=== PATIENT | female | born 1940 | race Caucasian/White ===

== ENCOUNTER 2018-07-30 13:49 | Inpatient (IN) | payer MEDICARE ==
[2018-07-30] MEDS ORDERED: NS 0.9% 1000 ML** 1,000 ML IV ONE (14:12)
[2018-07-30] MEDS ORDERED: Acetaminophen SUPP* 650 MG SUPP PR ONE (14:13)
--- NOTE | 2018-07-30 14:14 | ED ---
Respiratory - HPI Summary HPI Summary: A 77 y/o female brought in by [facility] ambulance presents to [facility] with a chief complaint of cough for the past week. The patient was at [facility], trying to get a CXR but her arms wouldnt budge from a crossed position. The patient has a Hx of dementia. The patients son reports that she also has had redness on her body for months. Per son, the patient does not have a Hx of DM, HTN or HLD. The patient was noted to have a low grade fever upon arrival at 100. Vital signs while in room HR: 83 bpm, O2 Sat: 95 - History of Current Complaint Chief Complaint: EDGeneral Stated Complaint: COUGH/RASH PER EMS Time Seen by Provider: 07/30/18 13:54 Hx Obtained From: Family/Furniture Stainer, EMS Hx From Patient Unobtainable Due To: Dementia Onset/Duration: Sudden Onset, Lasting Days, Still Present Timing: Constant Initial Severity: Mild Current Severity: Mild Pain Intensity: 0 - out of 10 Character: Cough (Nonproductive) Aggravating Factor(s): Nothing Alleviating Factor(s): Nothing Associated Signs and Symptoms: Fever - 100.0 - Allergy/Home Medications Allergies/Adverse Reactions: Allergies Allergy/AdvReac Type Severity Reaction Status Date / Time No Known Allergies Allergy Verified 07/30/18 13:54 Home Medications: Home Medications Citalopram TAB* [CeleXA TAB*] 10 mg PO DAILY 07/30/18 [History Confirmed ] Nystatin CREAM* 100,000 unit TOPICAL SEE INSTRUCTIONS 07/30/18 [History Confirmed 07/30/18] QUEtiapine TAB* [Seroquel 25 MG TAB*] 25 mg PO BID 07/30/18 [History Confirmed 07/30/18] QUEtiapine TAB* [Seroquel 25 MG TAB*] 50 mg PO BEDTIME 07/30/18 [History Confirmed 07/30/18] lamoTRIgine [Lamotrigine] 25 mg PO IN AM AND AT BEDTIME 07/30/18 [History Confirmed 07/30/18] traZODone TAB* [Desyrel TAB*] 50 mg PO BEDTIME 07/30/18 [History Confirmed 07/30] PMH/Surg Hx/FS Hx/Imm Hx Endocrine/Hematology History: Denies: Hx Diabetes, Hx Systemic Lupus Erythematosus, Hx Thyroid Disease Cardiovascular History: Denies: Hx Congestive Heart Failure, Hx Hypertension Respiratory History: Denies: Hx Asthma, Hx Chronic Obstructive Pulmonary Disease (COPD) GI History: Reports: Hx Gastroesophageal Reflux Disease Denies: Hx Ulcer History: Denies: Hx Dialysis, Hx Renal Disease Musculoskeletal History: Denies: Hx Rheumatoid Arthritis Sensory History: Reports: Hx Contacts or Glasses Opthamlomology History: Reports: Hx Contacts or Glasses Neurological History: Reports: Hx Dementia - Cancer History Hx Chemotherapy: No Infectious Disease History: No Infectious Disease History: Denies: Hx Clostridium Difficile, Hx Hepatitis, Hx Human Immunodeficiency Virus (HIV), Hx of Known/Suspected MRSA, Hx Shingles, Hx Tuberculosis, Traveled Outside the [place] in Last 30 Days - Family History Known Family History: Positive: Other - Positive: brother has alzheimer's Negative: Diabetes - Social History Alcohol Use: None Substance Use Type: Reports: None Smoking Status (MU): Never Smoked Tobacco Review of Systems Positive: Fever - 100.0 Positive: Cough Positive: Rash All Other Systems Reviewed And Are Negative: Yes Physical Exam - Summary Physical Exam Summary: GENERAL: Patient is a well-developed and nourished F who is lying comfortable in the stretcher. Patient is not in any acute respiratory distress. HEAD AND FACE: Normocephalic EYES: PERRLA, EOMI x 2. EARS: Hearing grossly intact. MOUTH: Oropharynx within normal limits. NECK: Supple, trachea is midline, no adenopathy, no JVD, no carotid bruit. CHEST: Symmetric, no tenderness at palpation LUNGS: Clear to auscultation bilaterally. No wheezing or crackles. CVS: Regular rate and rhythm, S1 and S2 present, no murmurs or gallops appreciated. ABDOMEN: Soft, non-tender. Bowel sounds are normal. No abdominal abnormal pulsations. EXTREMITIES: Full ROM in all major joints, no edema, no cyanosis or clubbing. NEURO: Alert and oriented x 3. No acute neurological deficits. Speech is normal and follows commands. SKIN: Chronic rash on head, arms and torso Triage Information Reviewed: Yes Vital Signs On Initial Exam: Initial Vitals Temp Pulse Resp BP Pulse Ox 100 F 82 20 127/79 98 07/30/18 13:50 07/30/18 13:50 07/30/18 13:50 07/30/18 13:50 07/30/18 13:50 Vital Signs Reviewed: Yes Diagnostics - Vital Signs Vital Signs Temp Pulse Resp BP Pulse Ox 07/30/18 13:50 100 F 82 20 127/79 98 - Laboratory Result Diagrams: 07/31/18 06:42 07/31/18 06:42 Lab Statement: Any lab studies that have been ordered have been reviewed, and results considered in the medical decision making process. - Radiology CXR Radiology Interpretation Completed By: Radiologist Summary of Radiographic Findings: No active cardiopulmonary disease is noted. ED physician has reviewed this imaging report. Re-Evaluation - Re-Evaluation First Eval Re-Evaluation Time: 16:53 Change: Unchanged Comment: Discussed options for disposition with family and social media campaign manager. The patient should be admitted. Disposition - Course Course Of Treatment: A 77 y/o female brought in by [facility] ambulance presents to [facility] with a chief complaint of cough for the past week. The physical exam showed chronic rash on head, arms and torso. CXR impression: No active cardiopulmonary disease is noted. Bloodwork and chemistries obtained. Lactic acid of 2.1 at 14:46. Urine Nitrate was positive. Urines are consistent with a UTI. The patient tested negative for influenza A and influenza B. In the ED course the patient was given Tylenol PO and Sodium Chloride IV. Discussed options for disposition with family and social media campaign manager. The patient will be admitted. Case discussed with hospitalist, Dr. Perdomo. I discussed results with patient. The patient agrees with this plan. - Diagnoses Provider Diagnoses: Urinary tract infection, Rash - Physician Notifications Discussed Care Of Patient With: Salome Perdomo Time Discussed With Above Provider: 17:10 Instructed by Provider To: Admit As Inpatient Discharge - Sign-Out/Discharge Documenting (check all that apply): Patient Departure - admit Patient Received Moderate/Deep Sedation with Procedure: No - Discharge Plan Condition: Fair Disposition: ADMITTED TO [facility] - Billing Disposition and Condition Condition: FAIR Disposition: Admitted to [facility] - Attestation Statements Document Initiated by Scribe: Yes Documenting Scribe: Denver Vuong Provider For Whom Scribe is Documenting (Include Credential): Ifeoma Mcdonnell MD Scribe Attestation: Denver Cunningham, scribed for Ifeoma Mcdonnell MD on 07/31/18 at 0731. Scribe Documentation Reviewed: Yes Provider Attestation: The documentation as recorded by the scribe, Denver Vuong accurately reflects the service I personally performed and the decisions made by me, Edil Mcdonnell MD Status of Scribe Document: Viewed
[2018-07-30 14:39] LABS: Influenza A Molecular NEGATIVE (Negative); Influenza B Molecular NEGATIVE (Negative)
[2018-07-30 15:06] LABS: ABS Basophils 0 10^3/ul (0-0.2); ABS Eosinophils 0.2 10^3/ul (0-0.6); ABS Lymphocytes 1.4 10^3/ul (1.0-4.8); ABS Monocytes 1.2 10^3/ul (0-0.8); ABS Neutrophils 7.5 10^3/ul (1.5-7.7); ABS Nucleated RBC 0 10^3/ul; Eosinophil % 2.2 %; Hematocrit 38 % (33-41); Hemoglobin 12.7 g/dL (12.0-16.0); Lymphocyte % 13.9 %; Mean Corpuscular HGB Conc 34 g/dL (31-36); Mean Corpuscular Hemoglobin 32 pg (27-31); Mean Corpuscular Volume 95 fL (80-97); Mean Platelet Volume 6.7 fL (7.4-10.4); Nucleated Red Blood Cells % 0; Platelet Count 532 10^3/uL (150-450); Red Blood Count 3.99 10^6 /uL (3.70-4.87); Red Cell Distribution Width 14 % (10.5-15); White Blood Count 10.3 10^3/uL (3.5-10.8)
[2018-07-30 15:16] LABS: Activated Partial Thrombo Time 29.3 seconds (26.0-36.3); INR 1.02 (0.77-1.02)
[2018-07-30 15:25] LABS: Albumin 3.9 g/dL (3.2-5.2); Albumin/Globulin Ratio 1.1 (1-3); C Reactive Protein 95.87 mg/L (<8.01); Calcium 9.6 mg/dL (8.6-10.3); EGFR Non-African American 77.7 (>60); Globulin 3.6 g/dL (2-4); Potassium 4.1 mmol/L (3.5-5.0); Total Bilirubin 0.3 mg/dL (0.2-1.0); Total Protein 7.5 g/dL (6.4-8.9)
[2018-07-30 15:35] LABS: Urine Appearance Cloudy; Urine Bacteria 1+ (Absent); Urine Bilirubin Negative (Negative); Urine Blood 1+ (Negative); Urine Color Yellow; Urine Glucose Negative (Negative); Urine Ketones Negative (Negative); Urine Nitrite Positive (Negative); Urine Protein Negative (Negative); Urine Red Blood Cell Trace(0-2/hpf) (Absent); Urine Specific Gravity 1.006 (1.010-1.030); Urine Squamous Epithelial Cell Present (Absent); Urine Urobilinogen Negative (Negative); Urine White Blood Cell 1+(6-10/hpf) (Absent)
[2018-07-30] MEDS ORDERED: cefTRIAXone(*) 1 GM in NS 0.9% 50 ML* 50 ML IVPB ONE (17:00)
[2018-07-30] MEDS ORDERED: Magnesium Hydroxide LIQ* 30 ML UDC PO PRN (19:34)
[2018-07-30] MEDS ORDERED: Acetaminophen TAB* 325 MG PO PRN (19:34)
[2018-07-30] MEDS ORDERED: Al Hydrox/Mg Hydrox/Simet LIQ* 30 ML UDC PO PRN (19:34)
[2018-07-30] MEDS ORDERED: NS 0.9% 1000 ML** 1,000 ML IV SCH (19:45)
[2018-07-30] MEDS ORDERED: Ketoconazole 2 % CREAM (NF) 30 GM TUBE TOPICAL SCH (20:00)
[2018-07-30] MEDS ORDERED: Polymyx/Trimethoprim OPTH* 10 ML BTL BOTH EYES SCH (20:30)
[2018-07-30 20:35] LABS: Magnesium 2.1 mg/dL (1.9-2.7)
[2018-07-30 20:48] LABS: TSH (Thyroid Stimulating Horm) 2.79 mcIU/mL (0.34-5.60)
--- NOTE | 2018-07-30 21:03 | HP ---
CC: Dr. Albino Adame * HISTORY AND PHYSICAL: DATE OF ADMISSION: 07/30/18 PRIMARY CARE PROVIDER: Dr. Albino Adame. ATTENDING PHYSICIAN: Dr. Ysabel Blanco * (dictated by OMER Celestin). CHIEF COMPLAINT: Cough and rash. HISTORY OF PRESENT ILLNESS: Carol Shepard is a 77-year-old female with past medical history significant for dementia, who is brought to the emergency department by her son and [id number] for cough x1 week. The son attempted to take her to her primary care provider today, but there were no appointments available. They took her to [facility] where an x-ray was not able to be obtained, so they decided to report to the ED. The patient has not had a recordable fever at home. Cough has been intermittent for the last week in addition to recently started nasal congestion. The cough is worse at night. The patient is unable to participate in history due to her severe dementia, so majority of history is gathered from her son, her [id number], and medical records. The patient's was her primary chair installer in addition to an aide that comes to the house until recently. Her 1 week ago. The family reports that the rash on her arms and chest has been persistent for the last 5 to 6 months, though has worsened in the last month. The patient does frequently itch rash on her arms, according to family. The aide was applying nystatin topically. The patient's hair began falling out around 1 month ago. The family has not noticed any increased signs of distress from the patient. Additionally, the family has noticed increased discharge from the patient's eyes. It has reaccumulated since being wiped away several hours ago. EMERGENCY DEPARTMENT COURSE: Vital signs when the patient arrived to the emergency department were temperature of 100.0, pulse rate of 82, respiratory rate of 20, 98% on room air, and blood pressure 127/79. The lactic acid was elevated to 2.1 and there was a positive urinalysis. Therefore, the hospitalists were asked to evaluate the patient for admission. PAST MEDICAL HISTORY: 1. Dementia, Alzheimer's, diagnosed in 2010. 2. GERD. 3. Dyslipidemia. PAST SURGICAL HISTORY: Unknown to family. MEDICATIONS: 1. Seroquel 50 mg p.o. at bedtime. 2. Seroquel 25 mg p.o. b.i.d. 3. Celexa 10 mg p.o. daily. 4. Nystatin cream 100,000 units topically. 5. Trazodone 50 mg p.o. at bedtime. 6. Lamotrigine 25 mg p.o. q.a.m. and q.h.s. ALLERGIES: No known drug allergies. FAMILY HISTORY: Brother with Alzheimer's and coronary artery disease. SOCIAL HISTORY: The patient is retired. She was living at home with her until he 1 week ago. The patient has 3 children. Her son, Anthony, is her surrogate decision maker. His number is [phone]. The patient does not use tobacco products, alcohol, or illicit drugs. REVIEW OF SYSTEMS: The patient was unable to participate in review of systems, though pertinent positives as described by family members are in the HPI. PHYSICAL EXAMINATION GENERAL: The patient is lying supine in hospital bed, appearing in no acute distress. HEENT: Eyes: Pupils are equal, round, and reactive to light. Palpebral conjunctivae appear erythematous. There is [id number] discharge from bilateral lateral and medial canthi. Sclerae anicteric. ENT: Mucous membranes appear moist. The patient is unable to cooperate with oropharynx exam. NECK: Neck is supple. No JVD. RESPIRATORY: No adventitious lung sounds on auscultation, although there is poor effort on inspiration. Chest is symmetrical with respirations. CARDIO: Regular rate and rhythm without murmurs, rubs, or gallops. ABDOMEN: Abdomen is soft and nontender. NEURO: The patient is alert and oriented x0. The patient is unable to cooperate with neurological exam. SKIN: Skin is dry throughout. Skin is extremely dry at the scalp with white patches of additional flaking skin and patchy hair loss. Demarcated erythema under bilateral breasts extending to down bilateral arms and up throughout chest. Additionally, there is demarcated erythema on the left thigh approx 3 cm in diameter. The patient is noted to be itching rash at her arms. DIAGNOSTIC STUDIES/LAB DATA: White blood cell count 10.3, hemoglobin 12.7, hematocrit 38, platelet count 532. Sodium 137, potassium 4.1, chloride 102, CO2 of 26, BUN 8, creatinine 0.73, glucose 94. Lactic acid 2.1, 0.6. Troponin 0.00. CRP 95.87. Urinalysis obtained from straight cath: +1 blood, positive nitrite, +2 leukocyte esterase, 1+ white blood cells, squamous epithelial cells present, and +1 bacteria. Chest x-ray today, impression: "No active cardiopulmonary disease is noted." ASSESSMENT AND PLAN: The patient is a 77-year-old female with significant past medical history of severe dementia who presents to the ED for cough x1 week. The patient is admitted to observation for: 1. Cough. Differential includes a viral upper respiratory infection versus aspiration. The symptoms of the cough appear consistent with a viral upper respiratory infection, including that the cough is worse at night, which consistent with postnasal drip. Additionally, the patient has discharge from bilateral medial and lateral canthi of the eyes which is also consistent very common with viral upper respiratory infection. Due to the patient's advanced dementia, it is necessary to rule out aspiration. Speech evaluation has been ordered. My suspicion for pneumonia is low, as the patient does not have a fever in the ED and did not measure fevers at home. Her lactic acid was elevated to 2.1 in the ED, but later was measured to be 0.6. Because of this, urinalysis was ordered and an incidental pyuria was found. This will be treated with IV ceftriaxone. Urine culture was sent. In addition, blood cultures were sent as part of the sepsis protocol from the ED. The patient received 1 L of normal saline in the ED. 2. Rash and hair loss. Family reports that this rash has been present for up to 6 months and is worsening and spreading. The hair loss started approximately 1 month ago. The hair loss may be explained by seborrheic dermatitis, though poor nutrition may be a component. It is unclear how frequently if at all the chair installer in the home was applying nystatin to the region. The rash is quite consistent with candidiasis, though the differential of the rash on the thigh includes tinea corporis. We will continue nystatin 3 times a day. Checking prealbumin, TSH, and magnesium. Chronic conditions: 3. Dementia. The patient has advanced dementia, she is nonverbal and appears to be minimally ambulatory. We will continue home medicine of Seroquel, Celexa , trazodone, and lamotrigine. 4. FEN. Thickened liquids and soft diet have been ordered. The speech swallow evaluation will determine further diet changes. Electrolytes are within normal limits. 5. DVT prophylaxis. The patient has been initiated on Lovenox. She has a DVT risk score of 3. 6. Code status. The patient is DNR/DNI. MOLST is updated today. 7. Disposition. Social work and Physical Therapy have been consulted with assistance for disposition planning. Depending on input from Physical Therapy and from the previously mentioned speech evaluation, a palliative consult may be considered in the future. The patient was previously cared for by her who 1 week ago and a chair installer who was coming to the home to assist the . The family reports this chair installer to be unreliable, and she has been unreachable today by reports of the family. TIME SPENT: Time spent on this admission was approximately 50 minutes, approximately half was spent at bedside. My attending physician, Dr. Ysabel Blanco, has reviewed this case and agrees with this plan of care. OMER CELESTIN [id number]/CPS #: [id number]/CPS #: [id number] SANTO
[2018-07-30] MEDS: Enoxaparin(*) 40 MG/0.4 ML SYR SUBCUT SCH (21:27)
[2018-07-30] MEDS: Nystatin TOP POWDER* 15 GM BTL TOPICAL SCH (21:27)
--- NOTE | 2018-07-30 21:36 | HP ---
HISTORY AND PHYSICAL: ADDENDUM: ASSESSMENT AND PLAN: The patient is a 77-year-old female with past medical history of severe dementia who presents to the ED via ambulance from [facility] for cough x1 week. The patient is admitted to observation for: 1. Cough. Differential includes a viral upper respiratory infection versus aspiration. The symptoms of the cough appear consistent with a viral upper respiratory infection, including that the cough is worse at night. It is consistent with postnasal drip. Additionally, the patient has discharge from bilateral medial and lateral canthi of the eyes which is also consistent very common with viral upper respiratory infection. Due to the patient's advanced dementia, it is necessary to rule out aspiration. Speech evaluation has been ordered. My suspicion for pneumonia is low, as the patient does not have a fever in the ED and did not measure fevers at home. Her lactic acid was elevated to 2.1 in the ED, but later was measured to be 0.6. Because of this, urinalysis was ordered and an incidental pyuria was found. This will be treated with IV ceftriaxone. Urine culture was sent. In addition, blood cultures were sent as part of the sepsis protocol from the ED. The patient received 1 L of normal saline in the ED. 2. Rash and hair loss. Family reports that this rash has been present for up to 6 months and is worsening and spreading. The hair loss started approximately 1 month ago. It is unclear how frequently if at all the door furring installer in the home was applying nystatin to the region. We will continue nystatin 3 times a day. Checking a TSH and magnesium. The hair loss may be explained by seborrheic dermatitis, though poor nutrition may be a component. Checking prealbumin. 3. Chronic conditions: Dementia. The patient has advanced dementia, she is nonverbal and appears to be minimally ambulatory. We will continue home medicine of Seroquel, Celexa, trazodone, and lamotrigine. 4. FEN. Thickened liquids and soft diet have been ordered. The speech swallow evaluation will determine further diet changes. Electrolytes are within normal limits. 5. DVT prophylaxis. The patient has been initiated on Lovenox. She has a DVT risk score of 3. 6. Code status. The patient is DNR/DNI. MOLST is updated today. 7. Disposition. Social work and Physical Therapy have been consulted with assistance for disposition planning. Depending on input from Physical Therapy and from the previously mentioned speech evaluation, a palliative consult may be considered in the future. The patient was previously cared for by her who 1 week ago and a door furring installer who is coming to the home to assist the . The family reports this door furring installer to be unreliable, and she has been unreachable by reports of the family. TIME SPENT: Time spent on this admission was approximately 50 minutes, approximately half was spent at bedside. My attending physician, Dr. Ysabel Blanco, has reviewed this case and agrees with this plan of care. OMER FARRELL [id number]/CPS #: [id number] MTDAna
[2018-07-31 06:56] LABS: ABS Basophils 0 10^3/ul (0-0.2); ABS Eosinophils 0.2 10^3/ul (0-0.6); ABS Lymphocytes 1.7 10^3/ul (1.0-4.8); ABS Monocytes 0.9 10^3/ul (0-0.8); ABS Neutrophils 4.8 10^3/ul (1.5-7.7); ABS Nucleated RBC 0 10^3/ul; Eosinophil % 2.1 %; Hematocrit 32 % (33-41); Hemoglobin 10.7 g/dL (12.0-16.0); Lymphocyte % 22.2 %; Mean Corpuscular HGB Conc 34 g/dL (31-36); Mean Corpuscular Hemoglobin 32 pg (27-31); Mean Corpuscular Volume 94 fL (80-97); Mean Platelet Volume 6.6 fL (7.4-10.4); Nucleated Red Blood Cells % 0; Platelet Count 426 10^3/uL (150-450); Red Blood Count 3.37 10^6 /uL (3.70-4.87); Red Cell Distribution Width 13 % (10.5-15); White Blood Count 7.6 10^3/uL (3.5-10.8)
[2018-07-31 07:11] LABS: BUN/Creatinine Ratio 9.7 (8-20); Calcium 8.4 mg/dL (8.6-10.3); EGFR African American 113.5 (>60); EGFR Non-African American 93.8 (>60); Potassium 3.9 mmol/L (3.5-5.0)
[2018-07-31] MEDS: Nystatin TOP POWDER* 15 GM BTL TOPICAL SCH ×3 (07:26→19:33)
[2018-07-31] MEDS ORDERED: guaiFENesin LIQ* 100 MG/5 ML UDC PO PRN (10:03)
--- NOTE | 2018-07-31 10:04 | PN ---
Subjective Date of Service: 07/31/18 Interval History: Ms. Shepard is essentially non-verbal but will answer yes and no at times. She seems to indicate that she feels better. Family note that her extensive rash has almost totally resolved and that she appears much more alert and bright. Objective Active Medications: Acetaminophen (Tylenol Tab*) 650 mg PO Q4H PRN Al Hydrox/Mg Hydrox/Simethicone (Maalox Plus*) 30 ml PO Q6H PRN Enoxaparin Sodium (Lovenox(*)) 40 mg SUBCUT Q24H DELMI Ceftriaxone Sodium 1 gm/ (Sodium Chloride) 50 mls @ 200 mls/hr IVPB Q24H DELMI Magnesium Hydroxide (Milk Of Magnesia Liq*) 30 ml PO Q4H PRN Nystatin (Nystatin Top Powder*) 1 applic TOPICAL TID DELMI Vital Signs: Temp Pulse Resp BP Pulse Ox 99.7 F 76 18 122/62 100 07/31/18 08:04 07/31/18 08:04 07/31/18 08:04 07/31/18 08:04 07/31/18 08:04 Oxygen Devices in Use Now: None Appearance: Female lying in bed in NAD Eyes: No Scleral Icterus Ears/Nose/Mouth/Throat: Mucous Membranes Moist Neck: Trachea Midline Respiratory: Symmetrical Chest Expansion and Respiratory Effort, Clear to Auscultation Cardiovascular: NL Sounds; No Murmurs; No JVD, No Edema Abdominal: NL Sounds; No Tenderness; No Distention Extremities: No Edema Skin: No Rash or Ulcers Neurological: NL Muscle Strength and Tone, - - Alert, mostly nonverbal, unable to further assess orientation Nutrition: Taking PO's Result Diagrams: 07/31/18 06:42 07/31/18 06:42 Assess/Plan/Problems-Billing Assessment: Ms. Shepard is a 77 yo F with a PMH of dementia who was admitted on 07/30/18 after her caregiver and she was unable to care for herself any longer with complaints of cough and possible UTI. - Patient Problems (1) Cough Comment: - Chest xray negative - Continue guaifenesin (2) UTI (urinary tract infection) Comment: - UA with positive leuk esterase and bacteria - Monitor culture results - Continue ceftriaxone (3) Alzheimers disease Comment: - Continue supportive care - Had been on multiple medications for behavioral issues at times but family feel that her dementia has advanced to the point that she is not as active and therefore these may no longer be needed - Plan to hold for now, consider resuming seroquel if becomes agitated (4) DVT prophylaxis (5) DNR (do not resuscitate) Comment: Status and Disposition: OBV. Anticipate need for alf vs alternative assistance at home
[2018-07-31] MEDS: cefTRIAXone(*) 1 GM in NS 0.9% 50 ML* 50 ML IVPB SCH (16:44)
[2018-07-31] MEDS: Enoxaparin(*) 40 MG/0.4 ML SYR SUBCUT SCH (19:33)
--- NOTE | 2018-08-01 08:07 | PN ---
Subjective Date of Service: 08/01/18 Interval History: Ms. Shepard seems to be feeling well and appears to be in no acute distress. She is non-verbal. Objective Active Medications: Acetaminophen (Tylenol Tab*) 650 mg PO Q4H PRN Al Hydrox/Mg Hydrox/Simethicone (Maalox Plus*) 30 ml PO Q6H PRN Enoxaparin Sodium (Lovenox(*)) 40 mg SUBCUT Q24H DELMI Guaifenesin (Robitussin*) 5 ml PO Q4H PRN Ceftriaxone Sodium 1 gm/ (Sodium Chloride) 50 mls @ 200 mls/hr IVPB Q24H DELMI Magnesium Hydroxide (Milk Of Magnesia Liq*) 30 ml PO Q4H PRN Nystatin (Nystatin Top Powder*) 1 applic TOPICAL TID DELMI Vital Signs: Temp Pulse Resp BP Pulse Ox 98.3 F 77 16 118/73 97 08/01/18 03:43 08/01/18 03:43 08/01/18 03:43 08/01/18 03:43 08/01/18 03:43 Oxygen Devices in Use Now: None Appearance: Female lying in bed in NAD Eyes: No Scleral Icterus Ears/Nose/Mouth/Throat: Mucous Membranes Moist Neck: Trachea Midline Respiratory: Symmetrical Chest Expansion and Respiratory Effort, Clear to Auscultation Cardiovascular: NL Sounds; No Murmurs; No JVD, No Edema Abdominal: NL Sounds; No Tenderness; No Distention Extremities: No Edema Skin: No Rash or Ulcers Neurological: - - Alert, nonverbal, generalized weakness, does not follow commands Nutrition: Taking PO's Result Diagrams: 07/31/18 06:42 07/31/18 06:42 Assess/Plan/Problems-Billing Assessment: Ms. Shepard is a 77 yo F with a PMH of dementia who was admitted on 07/30/18 after her caregiver and she was unable to care for herself any longer with complaints of cough and possible UTI. - Patient Problems (1) Cough Comment: - Chest xray negative - Continue guaifenesin (2) UTI (urinary tract infection) Comment: - UA with positive leuk esterase and bacteria - Monitor culture results - Continue ceftriaxone (3) Alzheimers disease Comment: - Continue supportive care - Had been on multiple medications for behavioral issues at times but family feel that her dementia has advanced to the point that she is not as active and therefore these may no longer be needed - Plan to hold for now, consider resuming seroquel if becomes agitated (4) Rash Comment: - Patient had diffuse erythematous rash on admission that resolved within 24 hours, unclear source but family worried about lack of adequate care from aide who had been caring for her in the home (5) DVT prophylaxis Comment: - Lovenox (6) DNR (do not resuscitate) Comment: Status and Disposition: OBV. Anticipate need for long term vs alternative assistance at home
[2018-08-01] MEDS: Nystatin TOP POWDER* 15 GM BTL TOPICAL SCH ×3 (09:04→19:18)
[2018-08-01] MEDS: cefTRIAXone(*) 1 GM in NS 0.9% 50 ML* 50 ML IVPB SCH (17:43)
[2018-08-01] MEDS: Enoxaparin(*) 40 MG/0.4 ML SYR SUBCUT SCH (19:19)
[2018-08-02] MEDS: Nystatin TOP POWDER* 15 GM BTL TOPICAL SCH ×3 (10:30→20:07)
--- NOTE | 2018-08-02 13:46 | PN ---
Progress Note - Progress Note Date of Service: 08/02/18 Note: Meeting with son at 5pm.
--- NOTE | 2018-08-02 14:15 | PN ---
Objective Active Medications: Acetaminophen (Tylenol Tab*) 650 mg PO Q4H PRN PRN Reason: FEVER/PAIN Al Hydrox/Mg Hydrox/Simethicone (Maalox Plus*) 30 ml PO Q6H PRN PRN Reason: INDIGESTION Enoxaparin Sodium (Lovenox(*)) 40 mg SUBCUT Q24H [facility] Last Admin: 08/01/18 19:19 Dose: 40 mg Guaifenesin (Robitussin*) 5 ml PO Q4H PRN PRN Reason: COUGH Ceftriaxone Sodium 1 gm/ (Sodium Chloride) 50 mls @ 200 mls/hr IVPB Q24H [facility] Last Admin: 08/01/18 17:43 Dose: 200 mls/hr Magnesium Hydroxide (Milk Of Magnesia Liq*) 30 ml PO Q4H PRN PRN Reason: CONSTIPATION Last Admin: 08/01/18 09:04 Dose: 30 ml Nystatin (Nystatin Top Powder*) 1 applic TOPICAL TID [facility] Last Admin: 08/02/18 10:30 Dose: 1 applic Vital Signs - 8 hr 08/02/18 08/02/18 08/02/18 06:58 08:00 11:24 Temperature 99.3 F 98.8 F Pulse Rate 74 71 Respiratory 16 16 16 Rate Blood Pressure 112/49 145/78 (mmHg) O2 Sat by Pulse 95 97 Oximetry Oxygen Devices in Use Now: Nasal Cannula Result Diagrams: 07/31/18 06:42 07/31/18 06:42 Microbiology and Other Data: Microbiology 07/30/18 15:17 Urine Culture - Final Urine Staphylococcus Epidermidis 07/30/18 15:28 Aerobic Blood Culture - Preliminary Blood Venous No Growth Day 2 Anaerobic Blood Culture - Preliminary No Growth Day 2 07/30/18 14:46 Aerobic Blood Culture - Preliminary Blood Venous No Growth Day 2 Anaerobic Blood Culture - Preliminary No Growth Day 2 07/30/18 14:15 Influenza Types A,B Antigen - Final Nasal Specimen received for Influenza A/B Molecular testing Assess/Plan/Problems-Billing Assessment: Ms. Shepard is a 77 yo F with a PMH of dementia who was admitted on 07/30/18 after her caregiver and she was unable to care for herself any longer with complaints of cough and possible UTI. - Patient Problems (1) Cough Code(s): R05 - COUGH SNOMED Code(s): 97508760 Comment: - May be having low level aspirations based on swallow eval today - Chest xray negative - Continue guaifenesin - Modified diet (2) Rash Code(s): R21 - RASH AND OTHER NONSPECIFIC SKIN ERUPTION SNOMED Code(s): 469244703 Comment: - Patient had diffuse erythematous rash on admission that resolved within 24 hours, unclear source but family worried about lack of adequate care from aide who had been caring for her in the home (3) UTI (urinary tract infection) Comment: - Staph epi with multiple resistence - DC ceftriaxone, will give linezolid based on susceptibilities (4) Alzheimers disease Code(s): G30.9 - ALZHEIMER'S DISEASE, UNSPECIFIED SNOMED Code(s): 15470690 Comment: - Non-verbal, advanced - Pending MICHAEL - Holding seroquel, no aggressive behavior noted - Swallow eval recs pureed with honey thickened liquids (5) DVT prophylaxis Code(s): FWO6414 - SNOMED Code(s): 200697846 Comment: - Lovenox (6) DNR (do not resuscitate) Comment: Status and Disposition: OBV, pending referrals for MICHAEL
[2018-08-02] MEDS ORDERED: Linezolid TAB* 600 MG PO SCH (15:00)
[2018-08-02] MEDS: Linezolid TAB* 600 MG PO SCH (16:51)
--- NOTE | 2018-08-02 18:46 | CONSULT ---
Palliative / Hospice Consult Ordering Provider: Maryanne Decker - PCP-Deep - Subjective Code Status: DNR Advance Directives Location: No Advance Directives MOLST Part A Completed: Yes - on chart MOLST Part E Completed:: Yes - on chart - History or Present Illness History or Present Illness: 77 yo female with severe dementia brought to ER with complaint of cough X 1 week and rash. Her , who was on hospice, had just 1 week ago from lung cancer. Pt has had dementia since 2010. PMH significant for GERD and hypothyroidism. All history is from the [facility] and medical records since pt is non verbal. CXR neg, H/H10.7/32, alb 3.9, prealb 8 and tprot 7.5. was very resistant to getting help in the home. He hired one person but she was providing questionable care. Now grandson and daughter in law will be living there and providing most of the care. They have a question about bathing and lifting pt. Pt doesn't speak, she is non ambulatory and can do no adl's. Family doesn't want a feeding tube or any heroic measures. Lab Values: Laboratory Last Values WBC 7.6 10^3/uL (3.5-10.8) 07/31/18 06:42 RBC 3.37 10^6 /uL (3.70-4.87) L 07/31/18 06:42 Hgb 10.7 g/dL (12.0-16.0) L 07/31/18 06:42 Hct 32 % (33-41) L 07/31/18 06:42 MCV 94 fL (80-97) 07/31/18 06:42 MCH 32 pg (27-31) H 07/31/18 06:42 MCHC 34 g/dL (31-36) 07/31/18 06:42 RDW 13 % (10.5-15) 07/31/18 06:42 Plt Count 426 10^3/uL (150-450) 07/31/18 06:42 MPV 6.6 fL (7.4-10.4) L 07/31/18 06:42 Neut % (Auto) 63.6 % 07/31/18 06:42 Lymph % (Auto) 22.2 % 07/31/18 06:42 Ector % (Auto) 11.8 % 07/31/18 06:42 Eos % (Auto) 2.1 % 07/31/18 06:42 Baso % (Auto) 0.3 % 07/31/18 06:42 Absolute Neuts (auto) 4.8 10^3/ul (1.5-7.7) 07/31/18 06:42 Absolute Lymphs (auto) 1.7 10^3/ul (1.0-4.8) 07/31/18 06:42 Absolute Monos (auto) 0.9 10^3/ul (0-0.8) H 07/31/18 06:42 Absolute Eos (auto) 0.2 10^3/ul (0-0.6) 07/31/18 06:42 Absolute Basos (auto) 0 10^3/ul (0-0.2) 07/31/18 06:42 Absolute Nucleated RBC 0 10^3/ul 07/31/18 06:42 Nucleated RBC % 0 07/31/18 06:42 INR (Anticoag Therapy) 1.02 (0.77-1.02) 07/30/18 14:46 APTT 29.3 seconds (26.0-36.3) 07/30/18 14:46 Sodium 138 mmol/L (135-145) 07/31/18 06:42 Potassium 3.9 mmol/L (3.5-5.0) 07/31/18 06:42 Chloride 108 mmol/L (101-111) 07/31/18 06:42 Carbon Dioxide 24 mmol/L (22-32) 07/31/18 06:42 Anion Gap 6 mmol/L (2-11) 07/31/18 06:42 BUN 6 mg/dL (6-24) 07/31/18 06:42 Creatinine 0.62 mg/dL (0.51-0.95) 07/31/18 06:42 Est GFR ( Amer) 113.5 (>60) 07/31/18 06:42 Est GFR (Non-Af Amer) 93.8 (>60) 07/31/18 06:42 BUN/Creatinine Ratio 9.7 (8-20) 07/31/18 06:42 Glucose 84 mg/dL (70-100) 07/31/18 06:42 Lactic Acid 0.6 mmol/L (0.5-2.0) 07/30/18 18:15 Calcium 8.4 mg/dL (8.6-10.3) L 07/31/18 06:42 Magnesium 2.1 mg/dL (1.9-2.7) 07/30/18 14:46 Total Bilirubin 0.30 mg/dL (0.2-1.0) 07/30/18 14:46 AST 21 U/L (13-39) 07/30/18 14:46 ALT 21 U/L (7-52) 07/30/18 14:46 Alkaline Phosphatase 110 U/L (34-104) H 07/30/18 14:46 Troponin I 0.00 ng/mL (<0.04) 07/30/18 14:46 C-Reactive Protein 95.87 mg/L (<8.01) H 07/30/18 14:46 B-Natriuretic Peptide 78 pg/mL (<=100) 07/30/18 14:46 Total Protein 7.5 g/dL (6.4-8.9) 07/30/18 14:46 Albumin 3.9 g/dL (3.2-5.2) 07/30/18 14:46 Globulin 3.6 g/dL (2-4) 07/30/18 14:46 Albumin/Globulin Ratio 1.1 (1-3) 07/30/18 14:46 Prealbumin 8 mg/dL (18-38) L 07/30/18 14:46 TSH 2.79 mcIU/mL (0.34-5.60) 07/30/18 14:46 Urine Color Yellow 07/30/18 15:17 Urine Appearance Cloudy 07/30/18 15:17 Urine pH 6.0 (5-9) 07/30/18 15:17 Ur Specific [place] 1.006 (1.010-1.030) L 07/30/18 15:17 Urine Protein Negative (Negative) 07/30/18 15:17 Urine Ketones Negative (Negative) 07/30/18 15:17 Urine Blood 1+ (Negative) A 07/30/18 15:17 Urine Nitrate Positive (Negative) A 07/30/18 15:17 Urine Bilirubin Negative (Negative) 07/30/18 15:17 Urine Urobilinogen Negative (Negative) 07/30/18 15:17 Ur Leukocyte Esterase 2+ (Negative) A 07/30/18 15:17 Urine WBC (Auto) 1+(6-10/hpf) (Absent) A 07/30/18 15:17 Urine RBC (Auto) Trace(0-2/hpf) (Absent) 07/30/18 15:17 Ur Squamous Epith Cells Present (Absent) A 07/30/18 15:17 Urine Bacteria 1+ (Absent) A 07/30/18 15:17 Urine Glucose Negative (Negative) 07/30/18 15:17 Influenza A (Rapid) Negative (Negative) 07/30/18 14:28 Influenza B (Rapid) Negative (Negative) 07/30/18 14:28 - Objective Active Medications: Acetaminophen (Tylenol Tab*) 650 mg PO Q4H PRN PRN Reason: FEVER/PAIN Al Hydrox/Mg Hydrox/Simethicone (Maalox Plus*) 30 ml PO Q6H PRN PRN Reason: INDIGESTION Enoxaparin Sodium (Lovenox(*)) 40 mg SUBCUT Q24H [facility] Last Admin: 08/01/18 19:19 Dose: 40 mg Guaifenesin (Robitussin*) 5 ml PO Q4H PRN PRN Reason: COUGH Linezolid (Zyvox Tab*) 600 mg PO Q12H [facility] Stop: 08/05/18 06:01 Last Admin: 08/02/18 16:51 Dose: 600 mg Magnesium Hydroxide (Milk Of Magnesia Liq*) 30 ml PO Q4H PRN PRN Reason: CONSTIPATION Last Admin: 08/01/18 09:04 Dose: 30 ml Nystatin (Nystatin Top Powder*) 1 applic TOPICAL TID [facility] Last Admin: 08/02/18 15:28 Dose: 1 applic Vital Signs: Vital Signs: Temp Pulse Resp BP Pulse Ox 98.1 F 76 14 132/94 96 08/02/18 15:45 08/02/18 15:45 08/02/18 15:45 08/02/18 15:45 08/02/18 15:45 Patient Weight: Weight 62.414 kg Intake and Output: Intake & Output 07/31/18 08/01/18 08/02/18 08/03/18 06:59 06:59 06:59 06:59 Intake Total 2095 340 271 140 Balance 2095 340 271 140 Weight 62.414 kg Intake: IV Fluids 2094 IVPB 56 Oral 0 340 190 140 Other: Estimated Void Small Large Large # Bowel Movements 0 0 # Voids 3 0 1 ADLs: Meal Record Start: 07/30/18 20: 16 Freq: DAILY@0900,1400,1800 Status: Active Protocol: Created 07/30/18 20:16 System (Rec: 07/30/18 20:16 System MED-M21) Document 07/31/18 09:00 [id number] (Rec: 07/31/18 15:35 [id number] MED-C09) Document 07/31/18 14:00 [id number] (Rec: 07/31/18 15:37 [id number] MED-C09) Document 07/31/18 18:00 [id number] (Rec: 07/31/18 18:34 [id number] MED-C11) Document 08/01/18 09:00 [id number] (Rec: 08/01/18 10:13 [id number] MED-C11) Document 08/01/18 14:00 [id number] (Rec: 08/01/18 14:51 [id number] MED-C11) Document 08/01/18 18:00 [id number] (Rec: 08/01/18 18:22 [id number] MED-C11) Document 08/02/18 09:00 [id number] (Rec: 08/02/18 10:11 [id number] MED-C09) Document 08/02/18 14:00 [id number] (Rec: 08/02/18 16:00 [id number] MED-C09) Intake and Output Start: 07/30/18 14: 04 Freq: Status: Active Protocol: Created 07/30/18 14:04 System (Rec: 07/30/18 14:04 System ED-C31) Intake and Output Start: 07/30/18 20: 16 Freq: DAILY@0600,1400,2200 Status: Active Protocol: Created 07/30/18 20:16 System (Rec: 07/30/18 20:16 System MED-M21) Document 07/30/18 22:00 [id number] (Rec: 07/30/18 23:53 [id number] MED-C04) Document 07/31/18 06:00 [id number] (Rec: 07/31/18 06:05 [id number] MED-C15) Document 07/31/18 14:00 [id number] (Rec: 07/31/18 15:38 [id number] MED-C09) Document 07/31/18 22:00 [id number] (Rec: 07/31/18 22:10 [id number] MED-C09) Document 08/01/18 05:20 [id number] (Rec: 08/01/18 05:21 [id number] MED-C09) Document 08/01/18 14:00 [id number] (Rec: 08/01/18 14:51 [id number] MED-C11) Document 08/01/18 21:02 [id number] (Rec: 08/01/18 21:03 [id number] MED-C09) Document 08/02/18 05:31 [id number] (Rec: 08/02/18 05:32 [id number] MED-C09) Document 08/02/18 14:00 [id number] (Rec: 08/02/18 16:00 [id number] MED-C09) Eyes: No Scleral Icterus Ears/Nose/Mouth/Throat: Mucous Membranes Moist Neck: Trachea Midline Cardiovascular: NL Sounds; No Murmurs; No JVD, No Edema Abdominal: NL Sounds; No Tenderness; No Distention Extremities: No Edema Neurological: - - Alert, nonverbal, generalized weakness, does not follow commands - Assessment Assessment: 77 yo female with sever dementia eligible for hospice - Plan Consult Plan (MU): Hospice Plan: Long discussion with family(son and daughter in law). They are familiar with hospice and would very much like it for their mother. They plan on caring for her at home. Discussed the benefits of hospice and how it works. Will try to arrange for same day sign on and son is wanting to transport via car to home. They have a hospital bed but may need a commode. Pt is FAST scale 7c. She is eligible for hospice due to her severe dementia. KPS 40%, PPS 20%. - Time On Unit Date of Evaluation: 08/02/18 Hospice Consult Time in: 06:00 Hospice Consult Time Out: 07:30 Hospice Consult Time Total: 90 > 50% of Time Spend In Counseling or Coordinating Care: Yes
[2018-08-02] MEDS: Enoxaparin(*) 40 MG/0.4 ML SYR SUBCUT SCH (20:06)
[2018-08-03] MEDS: Linezolid TAB* 600 MG PO SCH (05:40)
[2018-08-03] MEDS: Nystatin TOP POWDER* 15 GM BTL TOPICAL SCH ×3 (10:09→21:03)
--- NOTE | 2018-08-03 14:07 | PN ---
Subjective Date of Service: 08/03/18 Interval History: Patient seen and examined. No acute overnight events. Patient remains non-verbal , unable to obtain ROS. Otherwise appears comfortable. Objective Active Medications: Acetaminophen (Tylenol Tab*) 650 mg PO Q4H PRN PRN Reason: FEVER/PAIN Al Hydrox/Mg Hydrox/Simethicone (Maalox Plus*) 30 ml PO Q6H PRN PRN Reason: INDIGESTION Enoxaparin Sodium (Lovenox(*)) 40 mg SUBCUT Q24H [facility] Last Admin: 08/02/18 20:06 Dose: 40 mg Guaifenesin (Robitussin*) 5 ml PO Q4H PRN PRN Reason: COUGH Linezolid (Zyvox Tab*) 600 mg PO Q12H [facility] Stop: 08/05/18 06:01 Last Admin: 08/03/18 05:40 Dose: 600 mg Magnesium Hydroxide (Milk Of Magnesia Liq*) 30 ml PO Q4H PRN PRN Reason: CONSTIPATION Last Admin: 08/01/18 09:04 Dose: 30 ml Nystatin (Nystatin Top Powder*) 1 applic TOPICAL TID [facility] Last Admin: 08/03/18 10:09 Dose: 1 applic Tobramycin/Dexamethasone (Tobradex 0.3-0.1%*) 1 drop BOTH EYES Q4H [facility] Stop: 08/06/18 13:59 Vital Signs - 8 hr 08/03/18 08/03/18 08/03/18 08:00 09:27 11:38 Temperature 98.0 F 98.3 F Pulse Rate 59 69 Respiratory 16 16 18 Rate Blood Pressure 115/57 113/58 (mmHg) O2 Sat by Pulse 97 97 98 Oximetry Oxygen Devices in Use Now: None Appearance: alert, NAD Eyes: No Scleral Icterus, PERRLA, - - lower lid and conjunctiva with erythema and sticky exudate bilaterally Ears/Nose/Mouth/Throat: Mucous Membranes Moist Neck: NL Appearance and Movements; NL JVP, Trachea Midline Respiratory: Symmetrical Chest Expansion and Respiratory Effort, Clear to Auscultation Cardiovascular: NL Sounds; No Murmurs; No JVD, RRR, No Edema Extremities: No Edema, No Clubbing, Cyanosis Skin: - - skin dry and flaky Neurological: - - advanced dementia Nutrition: Taking PO's, - - modified diet Result Diagrams: 07/31/18 06:42 07/31/18 06:42 Microbiology and Other Data: Microbiology 07/30/18 15:17 Urine Culture - Final Urine Staphylococcus Epidermidis 07/30/18 15:28 Aerobic Blood Culture - Preliminary Blood Venous No Growth Day 2 Anaerobic Blood Culture - Preliminary No Growth Day 2 07/30/18 14:46 Aerobic Blood Culture - Preliminary Blood Venous No Growth Day 2 Anaerobic Blood Culture - Preliminary No Growth Day 2 07/30/18 14:15 Influenza Types A,B Antigen - Final Nasal Specimen received for Influenza A/B Molecular testing Assess/Plan/Problems-Billing Assessment: Ms. Shepard is a 77 yo F with a PMH of dementia who was admitted on 07/30/18 after her caregiver and she was unable to care for herself any longer with complaints of cough and possible UTI. - Patient Problems (1) Cough Code(s): R05 - COUGH SNOMED Code(s): 21353714 Comment: - May be having low level aspirations based on swallow eval today - Chest xray negative - Continue guaifenesin - Modified diet - Appears stable (2) Rash Code(s): R21 - RASH AND OTHER NONSPECIFIC SKIN ERUPTION SNOMED Code(s): 612370528 Comment: - Patient had diffuse erythematous rash on admission that resolved within 24 hours, unclear source but family worried about lack of adequate care from aide who had been caring for her in the home - Skin appears dry and itchy, will order body lotion, may be r/t resolved rash , but no erythema noted (3) UTI (urinary tract infection) Comment: - Staph epi with multiple resistence - continue linezolid based on susceptibilities (4) Alzheimers disease Code(s): G30.9 - ALZHEIMER'S DISEASE, UNSPECIFIED SNOMED Code(s): 96599146 Comment: - Non-verbal, advanced - Palliative care consult noted, patient will be transitioned to home hospice with family - Holding seroquel, no aggressive behavior noted - Swallow eval recs pureed with honey thickened liquids (5) DVT prophylaxis Code(s): DSI7008 - SNOMED Code(s): 251870984 Comment: - Lovenox (6) DNR (do not resuscitate) Comment: (7) Eye drainage Code(s): H57.89 - OTHER SPECIFIED DISORDERS OF EYE AND ADNEXA SNOMED Code(s): 14995401 Comment: - Will trial tobradex drops and request RN to clean with saline Status and Disposition: Inpatient pending home hospice with same day sign on.
[2018-08-03] MEDS: Tobramycin/Dexameth OPTH.SUSP* 2.5 M L BTL BOTH EYES SCH ×3 (15:23→21:03)
[2018-08-03] MEDS: Nitrofurantoin Macrocrystals* 50 MG CAP PO SCH (21:03)
[2018-08-03] MEDS: Enoxaparin(*) 40 MG/0.4 ML SYR SUBCUT SCH (21:03)
[2018-08-04] MEDS: Tobramycin/Dexameth OPTH.SUSP* 2.5 M L BTL BOTH EYES SCH ×6 (02:16→21:21)
[2018-08-04] MEDS: Nitrofurantoin Macrocrystals* 50 MG CAP PO SCH ×2 (09:46→21:17)
[2018-08-04] MEDS: Nystatin TOP POWDER* 15 GM BTL TOPICAL SCH ×3 (11:44→21:21)
--- NOTE | 2018-08-04 17:59 | PN ---
Subjective Date of Service: 08/04/18 Interval History: Patient seen and examined. No acute changes overnight. Remains non-verbal but appears comfortable. Objective Active Medications: Acetaminophen (Tylenol Tab*) 650 mg PO Q4H PRN PRN Reason: FEVER/PAIN Al Hydrox/Mg Hydrox/Simethicone (Maalox Plus*) 30 ml PO Q6H PRN PRN Reason: INDIGESTION Enoxaparin Sodium (Lovenox(*)) 40 mg SUBCUT Q24H [facility] Last Admin: 08/03/18 21:03 Dose: 40 mg Guaifenesin (Robitussin*) 5 ml PO Q4H PRN PRN Reason: COUGH Magnesium Hydroxide (Milk Of Magnesia Liq*) 30 ml PO Q4H PRN PRN Reason: CONSTIPATION Last Admin: 08/01/18 09:04 Dose: 30 ml Nitrofurantoin Macrocrystals (Macrodantin*) 50 mg PO BID [facility] Stop: 08/06/18 20:59 Last Admin: 08/04/18 09:46 Dose: 50 mg Nystatin (Nystatin Top Powder*) 1 applic TOPICAL TID [facility] Last Admin: 08/04/18 14:00 Dose: Not Given Tobramycin/Dexamethasone (Tobradex 0.3-0.1%*) 1 drop BOTH EYES Q4H [facility] Stop: 08/06/18 13:59 Last Admin: 08/04/18 17:35 Dose: 1 drop Vital Signs - 8 hr 08/04/18 13:43 Temperature 97.0 F Pulse Rate 57 Respiratory 18 Rate Blood Pressure 121/61 (mmHg) Oxygen Devices in Use Now: None Appearance: alert, NAD Eyes: No Scleral Icterus, PERRLA, - - erythema and exudate to eyes improved Ears/Nose/Mouth/Throat: NL Teeth, Lips, Gums, Mucous Membranes Moist Neck: NL Appearance and Movements; NL JVP, Trachea Midline Respiratory: Symmetrical Chest Expansion and Respiratory Effort, Clear to Auscultation Cardiovascular: NL Sounds; No Murmurs; No JVD, RRR, No Edema Abdominal: NL Sounds; No Tenderness; No Distention Extremities: No Edema, No Clubbing, Cyanosis Skin: - - dry skin, no erythema or rash Neurological: - - advanced dementia, non-verbal Nutrition: Taking PO's Result Diagrams: 07/31/18 06:42 07/31/18 06:42 Microbiology and Other Data: Microbiology 07/30/18 15:17 Urine Culture - Final Urine Staphylococcus Epidermidis 07/30/18 15:28 Aerobic Blood Culture - Preliminary Blood Venous No Growth Day 2 Anaerobic Blood Culture - Preliminary No Growth Day 2 07/30/18 14:46 Aerobic Blood Culture - Preliminary Blood Venous No Growth Day 2 Anaerobic Blood Culture - Preliminary No Growth Day 2 07/30/18 14:15 Influenza Types A,B Antigen - Final Nasal Specimen received for Influenza A/B Molecular testing Assess/Plan/Problems-Billing Assessment: Ms. Shepard is a 77 yo F with a PMH of dementia who was admitted on 07/30/18 after her caregiver and she was unable to care for herself any longer with complaints of cough and possible UTI. - Patient Problems (1) Cough Code(s): R05 - COUGH SNOMED Code(s): 81083846 Comment: - Resolved - Chest xray negative - Continue guaifenesin - Modified diet/pureed - Appears stable (2) Rash Code(s): R21 - RASH AND OTHER NONSPECIFIC SKIN ERUPTION SNOMED Code(s): 409463249 Comment: - Patient had diffuse erythematous rash on admission that resolved within 24 hours, unclear source but family worried about lack of adequate care from aide who had been caring for her in the home - Skin appears dry and itchy, will order body lotion, may be r/t resolved rash , but no erythema noted - Resolved/improved (3) UTI (urinary tract infection) Comment: - Staph epi with multiple resistence - Unable to swallow linezolid (large pills), changed to nitrofurantoin (4) Alzheimers disease Code(s): G30.9 - ALZHEIMER'S DISEASE, UNSPECIFIED SNOMED Code(s): 22235246 Comment: - Non-verbal, advanced - Will be transitioned to home hospice with family tomorrow - Holding seroquel, no aggressive behavior noted - Swallow eval recs pureed with honey thickened liquids (5) Eye drainage Code(s): H57.89 - OTHER SPECIFIED DISORDERS OF EYE AND ADNEXA SNOMED Code(s): 83484721 Comment: - Seems improved today with tobradex drops - Continue rinsing with saline PRN (6) DVT prophylaxis Code(s): LRU2117 - SNOMED Code(s): 196347729 Comment: - Casimiro (7) DNR (do not resuscitate) Comment: Status and Disposition: Inpatient, DC to home hospice with family tomorrow.
[2018-08-04] MEDS: Enoxaparin(*) 40 MG/0.4 ML SYR SUBCUT SCH (21:19)
[2018-08-05] MEDS: Tobramycin/Dexameth OPTH.SUSP* 2.5 M L BTL BOTH EYES SCH ×3 (02:15→08:34)
[2018-08-05 07:48] VITALS: BP 126/57
[2018-08-05] MEDS: Nitrofurantoin Macrocrystals* 50 MG CAP PO SCH (08:34)
[2018-08-05] MEDS: Nystatin TOP POWDER* 15 GM BTL TOPICAL SCH (08:42)
--- NOTE | 2018-08-05 12:04 | DS ---
AMENDED REPORT NOW INCLUDES DESIGNATED COSIGNER CC: Dr. Albino Adame * DISCHARGE SUMMARY: DATE OF ADMISSION: 07/30/18 DATE OF DISCHARGE: 08/05/18 PRIMARY CARE PROVIDER: Dr. Albino Adame. MY ATTENDING FOR TODAY: Dr. Arden Pop.* (DICTATED BY STEFANO GARCIA NP) HOSPITAL COURSE: This is a 77-year-old female patient with advanced dementia who was brought to the emergency department by her son and [id number] with report of cough and rash. The patient's family said they attempted to take her to her primary care provider, but there were no appointments available and they felt that she was too ill not to see somebody, they took her to urgent care and was subsequently referred to the emergency department. The patient does have advanced dementia and she is nonverbal. Family stated that she had this nasal congestion and cough up until 1 week ago. Her who was her primary research recruiter unfortunately 1 week prior to her arrival at the hospital. She had an aide that was coming to the house, however, there was some question of whether the aide was actually taking proper care of the patient. She seem to be declining more rapidly. The patient was admitted for her rash and she did not exhibit any signs of pneumonia, was questionable whether she was having aspiration, however, because of her advanced dementia. Also, there was kind of diffuse rash that was causing hair loss, questionable whether this was a seborrheic dermatitis or candidiasis but in any case, it appeared that the aide who was supposed to be caring for the patient was not providing proper care. During her hospitalization, it was also noted that she had some pyuria. She had a positive urine culture with Staph epidermidis with some multiple drug resistance. We continued the nystatin topically to her skin and also some topical lotion. Her skin quality is very dry and she appear to be itchy. Also during this time, she was noted to have some eye drainage for which she was started on TobraDex eye drops and saline rinses to which she responded very well. Because of the patient's advanced state, the family was interested in hospice and palliative evaluation. She apparently has had more rapid declined over the past few months and the family was interested in having palliative care consult. The patient did qualify for hospice. She will be taken home with her son and [id number] for hospice services. Arrangements have been made for hospice signing on today after 1 p.m. I have spoken with the patient's son and the family will be transporting her back home this morning. The patient did have an elevated lactic acid of 2.1, which was likely attributable to urinary tract infection versus upper respiratory infection. She did receive fluid management. The patient did have a low-grade fever at admission of 100. However, she did not have any fevers after that, exhibited no tachycardia and no hypotension. DISCHARGE DIAGNOSES: 1. Advanced dementia. 2. Rash and hair loss, likely secondary to candidiasis. 3. Cough, likely upper respiratory infection versus aspiration, now resolved. 4. Urinary tract infection with Staphylococcus epidermidis. 5. Left eye drainage, likely conjunctivitis, now resolving. DISCHARGE MEDICATIONS: Include: 1. Seroquel 50 mg at bedtime and 25 mg two times a day. 2. Celexa 10 mg daily. 3. Nystatin 100,000 units topical. 4. Trazodone 50 mg at bedtime. 5. Lamotrigine 25 mg in the morning and at bedtime. 6. TobraDex eye drops one drop both eyes q.4 hours for 3 more days. 7. Macrodantin crystal 50 mg p.o. b.i.d. for 3 more days. REVIEW OF SYSTEMS: Unable to obtain secondary to advanced dementia. PHYSICAL EXAMINATION: The patient is alert, well appearing, in no acute distress. Vital signs are blood pressure 115/52, heart rate 63, respiratory rate 16, O2 saturation 96% on room air with a temperature of 97.6. HEENT: Patient is atraumatic, normocephalic. PERRLA. Nonicteric sclerae. There is some lower lid erythema and director of capital giving drainage. However, this is much improved from admission. Neck is supple, nontender. No JVD noted. No carotid bruit auscultated. Cardiovascular: S1, S2 present. Rate and rhythm are regular. No murmurs, gallops or rubs. Lungs are clear bilaterally to auscultation with no wheezing, rhonchi or rales. Abdomen is soft, nontender, nondistended. Positive bowel sounds in all 4 quadrants. : Patient is incontinent with urine and bowel. Musculoskeletal: There is no clubbing, no cyanosis, no edema. She has +2 distal pulses palpable. Skin is very dry, somewhat flaky, intact. No wounds or open lesions noted. Neurologic: Confused and nonverbal at baseline. LABORATORY DATA: WBC 7.6, RBC 3.37, hemoglobin 10.7, hematocrit 32, platelets 426. Sodium 138, potassium 3.9, chloride 108, CO2 of 24, creatinine 0.62, GFR is 93.8, glucose 84, calcium 8.4, magnesium 2.1, bilirubin 0.30, AST 21, ALT 21 , alk phos 110, troponin was negative at 0.00, CRP 95.87, BNP 78, total protein 7.5, albumin 3.9, prealbumin 8, TSH 2.79. DISPOSITION: The patient will be discharged to home. She is in stable condition. She will be in the care of her son and [id number]. Hospice will be signing her on after 1 p.m. today. ACTIVITY: As tolerated. DIET: Pureed with honey-thickened liquids as tolerated. FOLLOWUP: The patient can followup with any additional needs with Dr. Albino Adame, who will be managing her hospice sign on and continued care. TIME SPENT: Thirty five minutes on discharge planning, coordination with the family and medications. STEFANO GARCIA NP [id number]/CPS #: [id number] SANTO
== END 2018-08-05 11:45 | disposition hospice, home (50) | DRG 690 ==
LOC: ED 13:49 → MED 19:34 → OBSVTOIN 08-03 13:47
PROVIDERS: ADMIT Pediatrics; ATTEND Internal Medicine
DX: N39.0 Urinary tract infection, site not specified (principal); G30.9 Alzheimer's disease, unspecified; Z51.5 Encounter for palliative care; F02.80 Dementia in other diseases classified elsewhere, unspecified severity, without behavioral disturbance, psychotic disturbance, mood disturbance, and anxiety; B37.2 Candidiasis of skin and nail; L65.8 Other specified nonscarring hair loss; J06.9 Acute upper respiratory infection, unspecified; R05 Cough; B95.7 Other staphylococcus as the cause of diseases classified elsewhere; Z66 Do not resuscitate; H10.9 Unspecified conjunctivitis; E03.9 Hypothyroidism, unspecified; R15.9 Full incontinence of feces; R32 Unspecified urinary incontinence; K21.9 Gastro-esophageal reflux disease without esophagitis; E78.5 Hyperlipidemia, unspecified; Z79.899 Other long term (current) drug therapy; Z82.49 Family history of ischemic heart disease and other diseases of the circulatory system
CPT/HCPCS: 36415; 71046; 80048; 80053; 81003; 81015; 83605; 83735; 83880; 84134; 84443; 84484; 85025; 85610; 85730; 86140; 87040; 87077; 87086; 87186; 99285; A9270-GY; G0378; G8987-GO-CM; G8988-GO-CM; G8989-GO-CM; J0696; J1650